=== PATIENT | male | born 1935 | race African-American/Black ===

== ENCOUNTER 2021-01-25 19:04 | Observation (INO) | payer MEDICARE ==
[~2021-01-25] VITALS: Ht 175.3 cm; Wt 147.4 kg
[2021-01-25 20:28] LABS: BASOPHILS # (AUTO) 0.1 (0.0-0.1); BASOPHILS % 0.8 % (0.0-1.0); EOSINOPHILS # (AUTO) 0.6 (0.0-0.4); EOSINOPHILS % 6.4 % (0.0-6.0); HEMATOCRIT 22.3 % (38.2-49.6); LYMPHOCYTES # (AUTO) 2.5 (1.0-3.2); LYMPHOCYTES % 26.5 % (18.0-39.1); MEAN CORPUSCULAR HEMOGLOBIN 29.3 pg (28-32); MEAN CORPUSCULAR HGB CONC 29.6 g/dL (31-35); MEAN CORPUSCULAR VOLUME 99.1 fL (81-99); MONOCYTES # (AUTO) 0.8 (0.2-0.8); MONOCYTES % 8.5 % (4.4-11.3); NEUTROPHILS # (AUTO) 5.3 (2.1-6.9); NEUTROPHILS % 57.6 % (38.7-80.0); PLATELET COUNT 239 x10e3/uL (140-360); RED BLOOD COUNT 2.25 x10e6/uL (4.3-5.7); RED CELL DISTRIBUTION WIDTH 17.1 % (11.7-14.4)
[2021-01-25 20:30] LABS: HEMOGLOBIN 6.6 g/dL (14.0-18.0)
[2021-01-25] MEDS ORDERED: SODIUM CHLORIDE 0.9% 250ML 250 ML IV ONE (20:30)
[2021-01-25] MEDS ORDERED: Morphine 4mg Syringe 4 MG/ML INJ IV PRN (20:45)
[2021-01-25] MEDS ORDERED: ONDANSETRON HCL INJ 2MG/ML 2ML 2 MG/ML VIAL IV PRN (20:45)
[2021-01-25 20:50] LABS: ALBUMIN 2.9 g/dL (3.5-5.0); ALBUMIN/GLOBULIN RATIO 0.9 (0.8-2.0); ANION GAP 16.1 mmol/L (8-16); CALCIUM 8.9 mg/dL (8.4-10.2); POTASSIUM 4.1 mmol/L (3.5-5.1)
[2021-01-25 20:56] LABS: CREATINE KINASE MB 0.7 ng/mL (0-5.0)
[2021-01-25] MEDS ORDERED: ACETAMINOPHEN 325 MG TAB PO PRN (21:30)
[2021-01-25] MEDS ORDERED: CLONIDINE HCL 0.1 MG TAB PO PRN (21:30)
[2021-01-25] MEDS ORDERED: ACETAMINOPHEN/CODEINE 300MG - 30MG TAB PO PRN (21:30)
[2021-01-26] VITALS: BP 145/77
[2021-01-26] MEDS ORDERED: SODIUM CHLORIDE 0.9% 250ML 250 ML ONE ×2 (00:02→03:44)
[2021-01-26 04:00] VITALS: BP 134/57
[2021-01-26] MEDS ORDERED: MAGOX 400400 MG PO (04:51)
[2021-01-26] MEDS ORDERED: TYLENOL325 MG PO (04:51)
[2021-01-26] MEDS ORDERED: FERROUS SULFAT325 MG PO (04:51)
[2021-01-26] MEDS ORDERED: PANTOPRAZOLE SO40 MG PO (04:51)
[2021-01-26] MEDS ORDERED: GLIPIZIDE ER5 MG PO (04:51)
[2021-01-26] MEDS ORDERED: MIRALAX17 GM PO (04:51)
[2021-01-26] MEDS ORDERED: DULCOLAX SUPP10 MG RC (04:51)
[2021-01-26] MEDS ORDERED: ASPIRIN81 MG PO (04:51)
[2021-01-26] MEDS ORDERED: VITAMIN B-121000 MCG PO (04:51)
[2021-01-26] MEDS ORDERED: LEVOTHYROXINE75 MCG PO (04:51)
[2021-01-26] MEDS ORDERED: FINASTERIDE5 MG PO (04:51)
[2021-01-26] MEDS ORDERED: ESBRIET267 MG (04:51)
[2021-01-26] MEDS ORDERED: NEURONTIN300 MG PO (04:51)
[2021-01-26] MEDS ORDERED: LIPITOR20 MG PO (04:51)
[2021-01-26] MEDS ORDERED: FLOMAX0.4 MG PO (04:51)
[2021-01-26] MEDS ORDERED: VITAMIN D PO (04:51)
[2021-01-26] MEDS ORDERED: SENNA LAXATIVE8.6 MG PO (04:51)
[2021-01-26] MEDS ORDERED: LACTULOSE20 GM/30 M PO (04:51)
[2021-01-26] MEDS ORDERED: CARVEDILOL3.125 MG PO (04:51)
[2021-01-26] MEDS ORDERED: LASIX40 MG PO (04:51)
[2021-01-26] MEDS ORDERED: MELATONIN3 MG PO (04:51)
[2021-01-26] MEDS ORDERED: BUMETANIDE1 MG PO (07:25)
[2021-01-26 08:02] VITALS: BP 142/64
[2021-01-26 08:04] VITALS: BP 142/64
[2021-01-26] MEDS ORDERED: INFLUENZA VIRUS VAC SPLIT INJ 0.5 ML SYR IM SCH (09:00)
[2021-01-26 09:36] LABS: BASOPHILS # (AUTO) 0.1 (0.0-0.1); BASOPHILS % 0.8 % (0.0-1.0); EOSINOPHILS # (AUTO) 0.6 (0.0-0.4); EOSINOPHILS % 6.3 % (0.0-6.0); HEMATOCRIT 26.2 % (38.2-49.6); MEAN CORPUSCULAR HEMOGLOBIN 29.4 pg (28-32); MEAN CORPUSCULAR HGB CONC 30.5 g/dL (31-35); MEAN CORPUSCULAR VOLUME 96.3 fL (81-99); MONOCYTES # (AUTO) 0.8 (0.2-0.8); NEUTROPHILS # (AUTO) 5.3 (2.1-6.9); NEUTROPHILS % 60.8 % (38.7-80.0); PLATELET COUNT 198 x10e3/uL (140-360); RED BLOOD COUNT 2.72 x10e6/uL (4.3-5.7); RED CELL DISTRIBUTION WIDTH 17.3 % (11.7-14.4)
[2021-01-26] MEDS ORDERED: ALBUMIN 25% 12.5GM 50ML 0 ML IV ONE ×2 (09:49→09:50)
[2021-01-26 10:03] LABS: ALBUMIN 2.6 g/dL (3.5-5.0); ALBUMIN/GLOBULIN RATIO 0.8 (0.8-2.0); ANION GAP 15.1 mmol/L (8-16); CALCIUM 8.4 mg/dL (8.4-10.2); CREATININE, SERUM 2.75 mg/dL (0.72-1.25); POTASSIUM 4.1 mmol/L (3.5-5.1)
[2021-01-26 10:19] LABS: CREATINE KINASE MB 0.6 ng/mL (0-5.0)
[2021-01-26 11:34] VITALS: BP 133/49
[2021-01-26] MEDS ORDERED: SODIUM CHLORIDE 0.9% 1000ML 1,000 ML IV SCH (12:30)
[2021-01-26 16:02] VITALS: BP 150/61
[2021-01-26] MEDS ORDERED: POLYETHYLENE GLYCOL 3350 17 GM PACK PO SCH (17:00)
[2021-01-26] MEDS ORDERED: CARVEDILOL 3.125 MG TAB PO SCH (17:00)
[2021-01-26] MEDS ORDERED: ACETAMINOPHEN 325 MG TAB PO SCH (18:00)
[2021-01-26] MEDS ORDERED: FERROUS SULFATE 325 MG TAB PO SCH (21:00)
[2021-01-26] MEDS ORDERED: MELATONIN 3 MG TAB PO PRN (21:00)
[2021-01-26] MEDS ORDERED: ATORVASTATIN 20 MG TAB PO SCH (21:00)
[2021-01-27] MEDS ORDERED: LEVOTHYROXINE SODIUM 75 MCG TAB PO SCH (06:00)
[2021-01-27] MEDS ORDERED: PANTOPRAZOLE SOD 40 MG TABEC PO SCH (07:30)
[2021-01-27] MEDS ORDERED: GLIPIZIDE 5 MG TAB ER PO SCH (08:00)
[2021-01-27] MEDS ORDERED: SENNOSIDES 8.6 MG TAB PO SCH (09:00)
[2021-01-27] MEDS ORDERED: MAGNESIUM OXIDE 400 MG TAB PO SCH (09:00)
[2021-01-27] MEDS ORDERED: FUROSEMIDE 40 MG TAB PO SCH (09:00)
[2021-01-27] MEDS ORDERED: FINASTERIDE 5 MG TAB PO SCH (09:00)
[2021-01-27] MEDS ORDERED: TAMSULOSIN HCL 0.4 MG CAP PO SCH (09:00)
[2021-01-27] MEDS ORDERED: ASPIRIN 81 MG CHEW TAB PO SCH (09:00)
== END 2021-01-26 18:09 ==
LOC: ER 19:11 → ERHOLD 21:22 → MED/SURG3 22:43
PROVIDERS: ADMIT Internal Medicine; ATTEND Internal Medicine
DX: D50.9 Iron deficiency anemia, unspecified (principal); I13.0 Hypertensive heart and chronic kidney disease with heart failure and stage 1 through stage 4 chronic kidney disease, or unspecified chronic kidney disease; I50.22 Chronic systolic (congestive) heart failure; N18.4 Chronic kidney disease, stage 4 (severe); E11.22 Type 2 diabetes mellitus with diabetic chronic kidney disease; Z79.899 Other long term (current) drug therapy; Z20.822 Contact with and (suspected) exposure to COVID-19; E03.9 Hypothyroidism, unspecified; E78.5 Hyperlipidemia, unspecified; I25.10 Atherosclerotic heart disease of native coronary artery without angina pectoris; N40.0 Benign prostatic hyperplasia without lower urinary tract symptoms; K29.70 Gastritis, unspecified, without bleeding
CPT/HCPCS: 36415 ×2; 36555; 71045; 80053 ×2; 82550 ×2; 82553 ×2; 82948 ×2; 83880; 84484 ×2; 85025 ×2; 86850; 86900; 86920; 93005; 94799 ×2; 99284; G0378 ×2; J7050; P9016; U0002